=== PATIENT | female | born 1940 | race Two or more races ===

== ENCOUNTER 2023-09-18 12:42 | Emergency (ER) | payer OTHER ==
[~2023-09-18] VITALS: Ht 162.6 cm; Wt 45.4 kg
[2023-09-18 13:47] LABS: Basophils # (auto) 0.1 10 ^3/uL (0-0.2); Basophils % (auto) 0.6 % (0.0-2.0); Eosinophils # (auto) 0 10 ^3/uL (0-0.8); Eosinophils % (auto) 0.2 % (0.0-7.0); Hematocrit 24.8 % (36.0-46.0); Lymphocytes # (auto) 0.8 10 ^3/uL (0.4-5.4); Lymphocytes % (auto) 9.3 % (10.0-50.0); Mean Corpuscular Hemoglobin 32.7 pg (28.0-32.0); Mean Corpuscular Hgb Conc. 32.3 g/dL (32.0-36.0); Monocytes # (auto) 0.5 10 ^3/uL (0-1.3); Monocytes % (auto) 5.5 % (0.0-12.0); Neutrophils # (auto) 7.5 10 ^3/uL (1.6-8.6); Neutrophils % (auto) 84.4 % (37.0-80.0); Red Blood Cells 2.45 10^6/uL (4.0-5.20); Red Cell Distribution Width 16.4 % (11.8-14.3); White Blood Cell 8.9 10^3/uL (4.4-10.8)
[2023-09-18 14:11] LABS: INR 1.41 (0.9-1.15); Prothrombin Time 14.6 sec (9.3-11.8)
[2023-09-18 14:12] LABS: Alanine Aminotransferase 21 U/L (7-40); Albumin 2.9 g/dL (3.2-4.8); Alkaline Phosphatase 68 U/L (46-116); Anion Gap 5 (5-15); Aspartate Aminotransferase 12 U/L (13-40); BUN/Creatinine Ratio 81.4 (10.0-20.0); Bilirubin, Total 0.6 mg/dL (0.2-1.0); Blood Urea Nitrogen 48 mg/dL (9-23); Calcium 8.7 mg/dL (8.7-10.4); Carbon Dioxide 31 mmol/L (20-30); Chloride 102 mmol/L (98-107); Glucose 213 mg/dL (74-106); Sodium 138 mmol/L (136-145)
[2023-09-18 14:13] LABS: Total Protein 4.6 g/dL (5.7-8.2)
[2023-09-18 15:10] VITALS: PULSE 83; RESP 26; O2SAT 89
[2023-09-18 17:55] VITALS: BP 102/39; PULSE 92; RESP 20; TEMP 98.2; O2SAT 96
== END 2023-09-18 18:08 | disposition short-term general hospital (02) ==
LOC: EDBD 12:42 → ER 12:57
DX: D64.9 Anemia, unspecified (principal); K62.5 Hemorrhage of anus and rectum; I10 Essential (primary) hypertension; Z90.710 Acquired absence of both cervix and uterus
CPT/HCPCS: 36415; 80053; 82270; 85025; 85610; 86850; 86900; 86901